=== PATIENT | male | born 1990 | race African-American/Black ===

== ENCOUNTER 2017-04-21 17:00 | Emergency (ER) | payer OTHER ==
[~2017-04-21] VITALS: Ht 180.3 cm; Wt 85.0 kg
[~2017-04-21 17:00] MED LIST: AMOXICILLIN500 MG PO
[2017-04-21 18:16] VITALS: BP 136/82
== END 2017-04-21 18:24 | disposition home or self-care (01) | DRG 605 ==
LOC: ED 17:00
PROC: 0HQKXZZ Repair Right Lower Leg Skin, External Approach (ICD-10-PCS; principal; 2017-04-21)
DX: S81.811A Laceration without foreign body, right lower leg, initial encounter (principal); W25.XXXA Contact with sharp glass, initial encounter; Y93.H9 Activity, other involving exterior property and land maintenance, building and construction; Y92.414 Local residential or business street as the place of occurrence of the external cause

== ENCOUNTER 2017-04-28 17:04 | Emergency (ER) | payer OTHER ==
[~2017-04-28] VITALS: Ht 180.3 cm; Wt 85.6 kg
[2017-04-28 17:27] VITALS: BP 130/87
== END 2017-04-28 18:15 | disposition home or self-care (01) | DRG 950 ==
LOC: ED 17:04
DX: S81.811D Laceration without foreign body, right lower leg, subsequent encounter (principal)

== ENCOUNTER 2017-08-04 17:21 | Emergency (ER) | payer SELFPAY ==
[~2017-08-04] VITALS: Ht 180.3 cm; Wt 88.0 kg
[2017-08-04 18:44] LABS: HEMATOCRIT 44.2 % (39.0-50.0); HEMOGLOBIN 15.1 g/dl (14.0-18.0); IMMATURE GRANULOCYTES 0.3 % (0.0-1.0); MEAN CELL VOLUME 91.5 fL CALC (80.0-100.0); MEAN CORPUSCULAR HGB 31.3 pG CALC (26.0-32.0); MEAN CORPUSCULAR HGB CONC 34.2 g/L CALC (32.0-36.0); NEUT# 5.68 thou/uL (1.82-7.42); RED BLOOD COUNT 4.83 mill/uL (4.70-6.10); RED CELL DISTRI WIDTH 12.5 % (11.5-15.5)
[2017-08-04] MEDS ORDERED: IBUPROFEN600 MG PO (18:54)
[2017-08-04] MEDS ORDERED: KEFLEX500 M1 PO (18:54)
[2017-08-04 19:05] VITALS: BP 140/87
[2017-08-04 19:11] LABS: ALBUMIN 4.6 g/dL (3.2-5.0); ALKALINE PHOSPHATASE 106 u/l (38-126); ANION GAP 18 (6-22 (CALC)); BUN 15 mg/dL (9-20); BUN/CREATININE RATIO 15 (12-20 (CALC)); CARBON DIOXIDE 27 mmol/l (22-30); CHLORIDE 100 mmol/l (95-108); GFR > 60 ML/MIN (>=60 (CALC)); GFR FOR AFR.AMER. > 60 ML/MIN (>=60 (CALC)); POTASSIUM 3.9 mmol/l (3.5-5.1); SGOT/AST 26 u/l (17-59); SGPT/ALT 29 u/l (21-72); SODIUM 142 mmol/l (137-146); TOTAL PROTEIN 8.6 g/dL (6.3-8.2)
== END 2017-08-04 19:05 | disposition home or self-care (01) | DRG 605 ==
LOC: ED 17:21
DX: S61.032A Puncture wound without foreign body of left thumb without damage to nail, initial encounter (principal); S61.231A Puncture wound without foreign body of left index finger without damage to nail, initial encounter; L08.9 Local infection of the skin and subcutaneous tissue, unspecified; W22.8XXA Striking against or struck by other objects, initial encounter; Y93.H9 Activity, other involving exterior property and land maintenance, building and construction; Y92.007 Garden or yard of unspecified non-institutional (private) residence as the place of occurrence of the external cause

== ENCOUNTER 2017-08-08 19:10 | Emergency (ER) | payer SELFPAY ==
[~2017-08-08] VITALS: Ht 180.3 cm; Wt 88.4 kg
[~2017-08-08 19:10] MED LIST changes: +IBUPROFEN600 MG PO; +KEFLEX500 M1 PO
[2017-08-08] MEDS ORDERED: BACTRIM DS1 TAB PO (20:12)
[2017-08-08 20:25] VITALS: BP 138/88
== END 2017-08-08 20:35 | disposition home or self-care (01) | DRG 603 ==
LOC: ED 19:10
PROC: 0H9GXZZ Drainage of Left Hand Skin, External Approach (ICD-10-PCS; principal; 2017-08-08)
DX: L02.512 Cutaneous abscess of left hand (principal); B95.62 Methicillin resistant Staphylococcus aureus infection as the cause of diseases classified elsewhere

== ENCOUNTER 2017-08-09 20:50 | Emergency (ER) | payer SELFPAY ==
[~2017-08-09] VITALS: Ht 180.3 cm; Wt 84.1 kg
[~2017-08-09 20:50] MED LIST changes: +BACTRIM DS1 TAB PO
[2017-08-09 21:30] VITALS: BP 129/74
== END 2017-08-09 21:37 | disposition home or self-care (01) | DRG 951 ==
LOC: ED 20:50
DX: Z48.01 Encounter for change or removal of surgical wound dressing (principal)

== ENCOUNTER 2017-08-11 20:03 | Emergency (ER) | payer SELFPAY ==
[~2017-08-11] VITALS: Ht 180.3 cm; Wt 86.0 kg
[2017-08-11 21:50] VITALS: BP 126/86
== END 2017-08-11 21:50 | disposition home or self-care (01) | DRG 951 ==
LOC: ED 20:03
DX: Z48.01 Encounter for change or removal of surgical wound dressing (principal)

== ENCOUNTER 2017-08-13 21:14 | Emergency (ER) | payer SELFPAY ==
[~2017-08-13] VITALS: Ht 180.3 cm; Wt 87.8 kg
[2017-08-13 22:58] VITALS: BP 135/75
== END 2017-08-13 22:58 | disposition home or self-care (01) | DRG 951 ==
LOC: ED 21:14
DX: Z48.01 Encounter for change or removal of surgical wound dressing (principal)

== ENCOUNTER 2017-08-15 20:24 | Emergency (ER) | payer SELFPAY ==
[~2017-08-15] VITALS: Ht 180.3 cm; Wt 86.0 kg
[2017-08-15 21:25] VITALS: BP 139/89
== END 2017-08-15 21:25 | disposition home or self-care (01) | DRG 951 ==
LOC: ED 20:24
DX: Z48.01 Encounter for change or removal of surgical wound dressing (principal)

== ENCOUNTER 2021-12-09 18:29 | Emergency (ER) | payer MEDICAID ==
[~2021-12-09] VITALS: Ht 180.3 cm; Wt 86.3 kg
[2021-12-09 19:00] VITALS: BP 140/81
[2021-12-09 19:30] VITALS: BP 123/78
[2021-12-09 20:01] VITALS: BP 134/79
[2021-12-09] MEDS ORDERED: GENTAMICIN SULF5 ML OD (20:28)
[2021-12-09 20:31] VITALS: BP 135/92
[2021-12-09 20:49] VITALS: BP 135/92
== END 2021-12-09 20:53 | disposition home or self-care (01) ==
LOC: ED 18:29
DX: S05.01XA Injury of conjunctiva and corneal abrasion without foreign body, right eye, initial encounter (principal); H10.9 Unspecified conjunctivitis; X58.XXXA Exposure to other specified factors, initial encounter; Y93.H2 Activity, gardening and landscaping; Y99.0 Civilian activity done for income or pay